=== PATIENT | female | born 1975 | race Two or more races ===

== ENCOUNTER 2025-07-20 06:45 | Day surgery (SDC) | payer MEDICAID, SELFPAY ==
[2025-07-18 17:45] LABS: HCG Qualitative,Urine Negative
[2025-07-19 11:00] VITALS: BMI 30.4
[2025-07-20] VITALS (8 sets, daily range): BP systolic 133–178; BP diastolic 81–107; PULSE 70–98; RESP 15–21; TEMP 36.5–37; O2SAT 98–99; BMI 30.2
[2025-07-20] MEDS: fentaNYL CIT INJ 50 mCg/ML AMP 2ML (ASD USE ONLY) IVP (07:27)
[2025-07-20] MEDS: SODIUM CHLORIDE 0.9% 500 ML 500 ML 20 ML IV (07:27)
[2025-07-20] MEDS: MIDAZOLAM INJ 1 MG/ML VIAL 2 ML (ASD USE ONLY) 2 MG IVP (07:32)
== END 2025-07-20 08:16 | disposition home or self-care (01) ==
PROVIDERS: PCP Physician Assistant; Referring Provider Surgery; Visit Provider Surgery
PROC: 0DBE8ZX Excision of Large Intestine, Via Natural or Artificial Opening Endoscopic, Diagnostic (ICD-10-PCS; CPT 45380; principal; 2025-07-20 07:30)
DX: Z12.11 Encounter for screening for malignant neoplasm of colon (principal); K64.1 Second degree hemorrhoids
CPT/HCPCS: 45378; 81025; A4649; J1200; J2250; J3010; J7999